=== PATIENT | female | born 1940 | race Caucasian/White ===

== ENCOUNTER → 2019-03-06 | Outpatient (CLI) | payer MEDICARE ==
--- NOTE | 2019-03-06 14:48 | CT ---
EXAMINATION TYPE: CT chest w con DATE OF EXAM: 03/06/2019 COMPARISON: None HISTORY: Follow up breast CA. CT DLP: 528 mGycm, Automated exposure control for dose reduction was used. CONTRAST: Performed injected with 100 mL of Isovue 300. TECHNIQUE: Axial images were obtained at 5 mm thick sections. Reconstructed images are reviewed on [employer] computer in the coronal plane. FINDINGS: Thyroid is not well visualized. Bilateral breast prostheses are present. No suspicious lung nodules or focal infiltrates are present. No enlarged mediastinal or hilar adenopathy is evident. A few shoddy lymph nodes may be present. Th e ascending aorta diameter at the level of the main pulmonary artery is 3.7 cm. The main pulmonary a rtery diameter at the bifurcation is 2.5 cm. Minimal coronary artery calcifications present. Limited CT sections are obtained through the upper abdomen. There is moderate fatty infiltration live r. A cyst like area may be in the subcortical right lateral lobe of the liver. IMPRESSIONS: 1. No suspicious acute changes.
== END | disposition home or self-care (01) ==
LOC: RADCTMAIN 09:00
PROVIDERS: ATTEND Internal Medicine Hematology & Oncology
DX: Z08 Encounter for follow-up examination after completed treatment for malignant neoplasm (principal); Z85.3 Personal history of malignant neoplasm of breast
CPT/HCPCS: 71260; Q9967

== ENCOUNTER → 2022-01-25 | Outpatient (CLI) | payer MEDICARE ==
--- NOTE | 2022-01-25 14:35 | CT ---
EXAMINATION TYPE: CT ChestAbdPelvis w con DATE OF EXAM: 01/25/2022 COMPARISON: CT dated 03/06/2019 HISTORY: Breast cancer. CT DLP: 1634 mGycm Automated exposure control for dose reduction was used. CONTRAST: CT scan of the chest, abdomen and pelvis is performed with Oral Contrast and with IV Contrast, patien t injected with 100 mL of Isovue M300. FINDINGS: LUNGS: Minimal linear atelectasis/scarring seen at the anterior aspects of the lungs. Grossly unremar kable lungs otherwise. Patent central airways. No pleural effusion. MEDIASTINUM: No gross cardiomegaly. Coronary and arterial atherosclerotic calcifications. No pericard ial effusion. No pathologically enlarged lymph nodes in the chest. OTHER: Bilateral breast prosthesis. Right nipple subtle soft tissue thickening and linear calcificat ion, please correlate clinically and with mammography/breast ultrasound results. Degenerative changes of the midthoracic spine. LIVER/GB: Severe hypodense hepatic parenchyma likely representing severe hepatic steatosis. Wedge-sha ped hyperenhancing area is seen in the right hepatic lobe likely representing an area of less fat inf iltration or attenuation difference. 22 hypodense area is seen in the right hepatic lobe, stable sinc e 2019 CT scan likely representing a hepatic cyst. Suspected another tiny cyst in the caudate lobe of the liver. No other definite hepatic focal lesion with the limitation of the hepatic steatosis. Prev ious cholecystectomy. PANCREAS: Atrophic with fatty infiltration SPLEEN: No significant abnormality is seen. ADRENALS: No significant abnormality is seen. KIDNEYS: Few simple right renal cysts, otherwise unremarkable kidneys. BOWEL: Unremarkable stomach, duodenum and small bowel. Scattered uncomplicated colonic diverticulosi s. REPRODUCTIVE ORGANS: Previous hysterectomy. No gross adnexal mass. Suspected perineal prolapse. LYMPH NODES: No greater than 1 cm abdominal or pelvic lymph nodes are appreciated. OSSEOUS STRUCTURES: Degenerative changes of the lumbar spine. No gross aggressive bone lesion. OTHER: Scattered arterial atherosclerotic calcifications. No sizable ascites. Small upper abdomen mid line fat-containing hernia. IMPRESSION: 1. Questionable subtle right nipple soft tissue thickening and linear calcification, please correlate clinically and with mammography/breast ultrasound results. 2. Otherwise no evidence of metastatic disease seen in the chest, abdomen or the pelvis. 3. Severe hepatic steatosis with suspected few hepatic cysts as described above. Please note that hep atic steatosis decreases the sensitivity of CT for detection of hypodense metastasis. If hepatic meta stasis is clinically suspected, further MRI assessment can be considered. Other incidental findings a s described above.
== END | disposition home or self-care (01) ==
LOC: RADCTMAIN 10:24
DX: C50.911 Malignant neoplasm of unspecified site of right female breast (principal); C50.812 Malignant neoplasm of overlapping sites of left female breast
CPT/HCPCS: 82565; 84520; 71260; 74177; 36415; Q9967